=== PATIENT | male | born 1980 | race Caucasian/White ===

== ENCOUNTER 2017-12-30 12:07 | Emergency (ER) | payer OTHER ==
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
[2017-12-30] MEDS ORDERED: HYDROmorphONE/DILAUDID 1 MG/ML INJ ONE (12:24)
[2017-12-30] MEDS ORDERED: ONDANSETRON 4 MG/2 ML VIAL ONE (12:25)
[2017-12-30] MEDS ORDERED: ONDANSETRON 4 MG/2 ML VIAL IVP ONE (12:26)
[2017-12-30] MEDS ORDERED: HYDROmorphONE/DILAUDID 1 MG/ML INJ IVP ONE ×2 (12:26→12:43)
[2017-12-30] MEDS ORDERED: ONDANSETRON 4MG PREPACK#2 BTL TAKEHOME ONE (14:12)
[2017-12-30] MEDS ORDERED: ONDANSETRON DISINTEGRATING 4 MG TAB ONE (14:16)
[2017-12-30] MEDS ORDERED: HYDROCODONE/APAP 5/325 TAB ONE (14:22)
[2017-12-30 14:23] VITALS: BP 125/91
[2017-12-30] MEDS ORDERED: HYDROCODONE/APAP 5/325 TAB PO ONE (14:23)
== END 2017-12-30 14:33 | disposition home or self-care (01) ==
DX: S52.572A Other intraarticular fracture of lower end of left radius, initial encounter for closed fracture (principal); S70.12XA Contusion of left thigh, initial encounter; W23.1XXA Caught, crushed, jammed, or pinched between stationary objects, initial encounter
CPT/HCPCS: 96374; J1170; J2405; L3984

== ENCOUNTER 2018-01-04 18:19 | Emergency (ER) | payer OTHER ==
[2018-01-04 18:35] VITALS: BP 160/80
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
== END 2018-01-04 19:30 | disposition home or self-care (01) ==
DX: I82.492 Acute embolism and thrombosis of other specified deep vein of left lower extremity (principal); S70.12XD Contusion of left thigh, subsequent encounter; Z79.01 Long term (current) use of anticoagulants; W22.8XXD Striking against or struck by other objects, subsequent encounter

== ENCOUNTER → 2018-01-04 | Outpatient (CLI) | payer OTHER | LOC: BMCIMAGING 14:17 | PROVIDERS: ATTEND Physician Assistant | DX: I82.812 Embolism and thrombosis of superficial veins of left lower extremity (principal); R60.9 Edema, unspecified ==